=== PATIENT | male | born 1990 | race Caucasian/White ===

== ENCOUNTER 2019-06-09 19:35 | Emergency (ER) | payer OTHER ==
[2019-06-09 21:02] LABS: ABS Lymphocytes 1.5 10^3/ul (1.0-4.8); ABS Monocytes 0.5 10^3/ul (0-0.8); Eosinophil % 0.5 %; Hematocrit 42 % (42-52); Lymphocyte % 24.6 %; Mean Corpuscular HGB Conc 36 g/dL (31-36); Mean Corpuscular Hemoglobin 31 pg (27-31); Mean Corpuscular Volume 88 fL (80-94); Mean Platelet Volume 8.8 fL (7.4-10.4); Nucleated Red Blood Cells % 0.1; Platelet Count 236 10^3/uL (150-450); Red Blood Count 4.81 10^6 /uL (4.18-5.48); Red Cell Distribution Width 13 % (10-15)
[2019-06-09] MEDS ORDERED: Pantoprazole IV* 40 MG IV ONE (21:10)
[2019-06-09] MEDS ORDERED: NS 0.9% 1000 ML** 1,000 ML IV ONE (21:10)
--- NOTE | 2019-06-09 21:12 | ED ---
GI/ HPI - HPI Summary HPI Summary: 29 year old male presents with bowel pain for the past 4 days. He has been having diarrhea. States she's been having dark tarry stool. Has been taking Pepto-Bismol. He admits to some nausea but no vomiting. pain is great in right upper quadrant. He has no medical conditions. Denies any chest pain. No fevers. No shortness of breath. No recent travel. Has not been on antibiotic recently. Denies any Tylenol ibuprofen use. States he drinks twice a week about 6 beers at a time. - History of Current Complaint Chief Complaint: EDAbdPain Time Seen by Provider: 06/09/19 20:53 Stated Complaint: ABD PAIN Pain Intensity: 6 - Allergy/Home Medications Allergies/Adverse Reactions: Allergies Allergy/AdvReac Type Severity Reaction Status Date / Time No Known Allergies Allergy Verified 06/09/19 19:40 Home Medications: Home Medications Omeprazole CAP (NF) [Prilosec CAP* 20 MG] 20 mg PO DAILY #14 cap. 06/09/19 [Rx ] PMH/Surg Hx/FS Hx/Imm Hx Endocrine/Hematology History: Denies: Hx Anticoagulant Therapy Respiratory History: Denies: Hx Asthma Infectious Disease History: No Infectious Disease History: Denies: Traveled Outside the [place] in Last 30 Days - Family History Known Family History: Positive: Non-Contributory - Social History Alcohol Use: Weekly Alcohol Amount: ~10 drinks/week Substance Use Type: Reports: Excessive Caffeine, Marijuana Smoking Status (MU): Never Smoked Tobacco Review of Systems Negative: Fever Negative: Chest Pain Negative: Shortness Of Breath Positive: Abdominal Pain, Diarrhea All Other Systems Reviewed And Are Negative: Yes Physical Exam Triage Information Reviewed: Yes Vital Signs On Initial Exam: Initial Vitals Temp Pulse Resp BP Pulse Ox 99.0 F 101 15 168/81 99 06/09/19 19:39 06/09/19 19:39 06/09/19 19:39 06/09/19 19:39 06/09/19 19:39 Vital Signs Reviewed: Yes Appearance: Positive: Well-Appearing Skin: Positive: Warm, Dry Head/Face: Positive: Normal Head/Face Inspection Eyes: Positive: Normal, Conjunctiva Clear ENT: Positive: Pharynx normal Respiratory/Lung Sounds: Positive: Clear to Auscultation, Breath Sounds Present Cardiovascular: Positive: Normal, RRR Abdomen Description: Positive: Soft, Other: - tenderness in RUQ Bowel Sounds: Positive: Present Musculoskeletal: Positive: Normal Neurological: Positive: Normal Psychiatric: Positive: Normal Procedures - Sedation Patient Received Moderate/Deep Sedation with Procedure: No Diagnostics - Vital Signs Vital Signs Temp Pulse Resp BP Pulse Ox 06/09/19 21:04 81 98 06/09/19 21:03 75 139/85 97 06/09/19 19:39 99.0 F 101 15 168/81 99 - Laboratory Lab Results: Lab Results 06/09/19 Range/Units 20:53 WBC 6.0 (3.5-10.8) 10^3/uL RBC 4.81 (4.18-5.48) 10^6 /uL Hgb 15.0 (14.0-18.0) g/dL Hct 42 (42-52) % MCV 88 (80-94) fL MCH 31 (27-31) pg MCHC 36 (31-36) g/dL RDW 13 (10-15) % Plt Count 236 (150-450) 10^3/uL MPV 8.8 (7.4-10.4) fL Neut % (Auto) 65.9 % Lymph % (Auto) 24.6 % [place] % (Auto) 8.7 % Eos % (Auto) 0.5 % Baso % (Auto) 0.3 % Absolute Neuts (auto) 4.0 (1.5-7.7) 10^3/ul Absolute Lymphs (auto) 1.5 (1.0-4.8) 10^3/ul Absolute Monos (auto) 0.5 (0-0.8) 10^3/ul Absolute Eos (auto) 0.0 (0-0.6) 10^3/ul Absolute Basos (auto) 0.0 (0-0.2) 10^3/ul Absolute Nucleated RBC 0.0 10^3/ul Nucleated RBC % 0.1 Result Diagrams: 06/09/19 20:53 06/09/19 20:53 Lab Statement: Any lab studies that have been ordered have been reviewed, and results considered in the medical decision making process. - Ultrasound No standard instances Ultrasound Interpretation Completed By: Radiologist Summary of Ultrasound Findings: IMPRESSION: No sonographic findings to correlate with patient's symptomatology. Re-Evaluation - Re-Evaluation First Eval Re-Evaluation Time: 22:41 Comment: no improvement with protonix Second Eval Re-Evaluation Time: 23:23 Change: Improved GIGU Course/Dx - Course Course Of Treatment: 29 year old male presents with bowel pain for the past 4 days. He has been having diarrhea. States she's been having dark tarry stool. Has been taking Pepto-Bismol. He admits to some nausea but no vomiting. pain is great in right upper quadrant. He has no medical conditions. Denies any chest pain. No fevers. No shortness of breath. No recent travel. Has not been on antibiotic recently. Denies any Tylenol ibuprofen use. States he drinks twice a week about 6 beers at a time. On exam tenderness right upper quadrant. wbc normal. h/h normal. lfts normal. occult blood neg. gallbladder u/ s neg. gave gi cocktail, toradol and protonix with improvement. will place on course of omeprazole. could be viral vs gastritis. told follow up with GI if no improvement. patient understand and agrees with plan. - Diagnoses Differential Diagnoses - Male: Gastritis, Gastroenteritis (Bacterial), Gastroenteritis (Viral) Provider Diagnoses: Epigastric pain Discharge ED - Sign-Out/Discharge Documenting (check all that apply): Patient Departure - Discharge Plan Condition: Good Disposition: HOME Prescriptions: Omeprazole CAP (NF) [Prilosec CAP* 20 MG] 20 mg PO DAILY #14 albert. Patient Education Materials: Epigastric Pain (ED) Referrals: [facility] - John SANTORO [Primary Care Provider] - Ureil Banda MD [Medical Doctor] - Additional Instructions: Take omeprazole once a day Take tyenlol for pain every 6 hours Follow up GI if no improvement Return to ED if develop any new or worsening symptoms - Billing Disposition and Condition Condition: GOOD Disposition: Home
[2019-06-09 21:40] LABS: Albumin 4.7 g/dL (3.2-5.2); Calcium 9.5 mg/dL (8.6-10.3); Total Bilirubin 0.5 mg/dL (0.2-1.0)
[2019-06-09 21:46] LABS: BUN/Creatinine Ratio 14.7 (8-20); C Reactive Protein 1.13 mg/L (<8.01); EGFR African American 105.2 (>60); Globulin 2.4 g/dL (2-4); Total Protein 7.1 g/dL (6.4-8.9)
[2019-06-09] MEDS ORDERED: Al Hydrox/Mg Hydrox/Simet LIQ* 30 ML UDC PO ONE (22:41)
[2019-06-09] MEDS ORDERED: Lidocaine 2% VISCOUS* 15 ML UDC PO ONE (22:41)
[2019-06-09] MEDS ORDERED: Ketorolac INJ* 30 MG/ML 1 ML VIAL IV PUSH ONE (22:42)
[2019-06-09 23:03] LABS: Urine Appearance Clear; Urine Bilirubin Negative (Negative); Urine Blood Negative (Negative); Urine Color Straw; Urine Glucose Negative (Negative); Urine Ketones Negative (Negative); Urine Nitrite Negative (Negative); Urine Protein Negative (Negative); Urine Specific Gravity 1.011 (1.010-1.030); Urine Urobilinogen Negative (Negative)
[2019-06-09 23:35] VITALS: BP 124/81
== END 2019-06-09 23:34 | disposition home or self-care (01) ==
LOC: ED 19:35
DX: R10.13 Epigastric pain (principal); R10.11 Right upper quadrant pain; R19.7 Diarrhea, unspecified; R11.0 Nausea
CPT/HCPCS: 36415; 76705; 80053; 81003; 82272; 83605; 83690; 85025; 86140; 96361; 96374; 96375; 99282; A9270-GY; J1885